=== PATIENT | male | born 1955 | race Caucasian/White ===

== ENCOUNTER 2024-07-28 10:00 | Day surgery (SDC) | payer MEDICARE, SELFPAY ==
--- OUTSIDE RECORDS SUMMARY | 2024-06-11 13:32 | XMS_ITS | Continuity of Care Document ---
Author Organization [address] [place] [address] [facility] [place] Address [address] [place] [address] Care Team Providers Care Party Planner Name Role Phone King Barroso OD Unavailable Unavailable Allergies, Adverse Reactions, Alerts Substance Reaction Status Criticality No Known Allergies Active No Inform ation Procedures Procedure Date Comprehensive Oral Eval-New Or Establish ed Patient Intraoral-Complete Series Of Radiographi c Images Advance Directives Directive Yes / No Effective Date File Name Resuscitation Attempt Resuscitation/CPR N/A N /A Other Directive No N/A N/A WARNING:The information contained in this section is historical and is provided for information only and does not constitute a legal document or any assurance that the information is still accurate. Please verify the information with the florentino of the legal document before using it for clinical purposes. Encounters Encounter Description Practice Location Reason(s) For Visit Diagnoses Date Provider Providers Copied on Encounter [address] [place] [address], [place], [place], [id number], Arlette Padgett No Information Chio Malik. [address] [facility], [address], [place], [place], [id number], [place]. tel:[phone] [place] [address] [place] [address], [id number], Arlette Padgett Encounter for dental examination and cleaning without abnormal findings Shar Turner. [address] [facility], [address], [place], [place], [id number], [place]. tel:[phone] Referring Provider: Azael Rivera. Family History Family Member Type Diagnosis Age At Onset No Information Payers Payer name Insurance type Covered constitution party ID Authoriza tion(s) DDS [employer] [place] [id number] Social History Type Description Quantity Date Captured Comments Sex Male Smoking Status No Information Chief Complaint And Reason For Visit No Information Reason For Referral Reason For Referral No Information Plan Of Treatment Date Type Action Status Patient Education Dental X-Ray: About Thi s Test completed Patient Education Learning About Dental Care and Your Health Problem completed History Of Present Illness Encounter Date Complaint History Of Prese nt Illness No Information Functional Status Date Functional Assessmen t No Information Instructions Date Instruction Additional Infor mation No Information Assessments Type Assessment Date No Information Patient Care Teams Name Effective Dates (start - stop) Status Members No Information
--- OUTSIDE RECORDS SUMMARY | 2024-06-11 13:32 | XMS_ITS | Clinical Summary ---
Author Organization [facility] Address [address] [place] [address] Phone Care Team Providers Care Construction Inspector Name Role Phone King Cr Primary Care Provider [phone] Allergies Active Allergy Reactions Criticality Noted Date Comments Egg 03/27/2024 Upset stomach Hydrochlorothiazide 07/31/2014 Light sensitivity Milk Containing Products (Dairy) Upset stomach Medications amLODIPine (NORVASC) 5 mg tablet Take 1 tablet (5 mg total) by mouth 1 (one) time each day. 4 Active aspirin 81 mg EC tablet Take 1 tablet (81 mg total) by mouth 1 (one) time each day. Active blood-glucose meter kit 1 (one) time each day. to check blood sugars 4 Active brinzolamide-b rimonidine (SIMBRINZA) 1-0.2 % ophthalmic suspension Administer into affected eye(s). Active carvediloL (COREG) 3.125 mg tablet Take 1 tablet (3.125 mg total) by mouth 2 (two) times a day with meals. 4 Active SITagliptin phosphate (Januvia) 100 mg tablet Take 1 tablet (100 mg total) by mouth 1 (one) time each day. 4 Active latanoprost (XALATAN) 0.005 % ophthalmic solution 1 drop 2 (two) times a day. Active lancets lancets 1 each by Not Applicable route 1 (one) time each day. OneTouch FinePoint Lancets 4 Active lisinopriL (PRINIVIL,ZEST RIL) 2.5 mg tablet Take 1 tablet (2.5 mg total) by mouth 1 (one) time each day. 4 Active TIMOLOL OPHT Administer 1 drop into both eyes 1 (one) time each day. Active OneTouch Ultra Test test strip USE TO TEST BLOOD SUGAR ONCE DAILY 100 strip 1 4 Active metFORMIN (GLUCOPHAGE) 500 mg tablet TAKE 2 TABLETS BY MOUTH TWICE A DAY WITH MEALS 360 tablet 1 5 Active rosuvastatin (CRESTOR) 20 mg tablet Take 1 tablet (20 mg total) by mouth 1 (one) time each day. 90 each 3 5 05/15/19 26 Active simvastatin (ZOCOR) 10 mg tablet Take 1 tablet (10 mg total) by mouth at bedtime. 90 tablet 1 4 05/15/19 25 Discontinu ed(Formula ry change) Hospital, Clinic, or Other Facility Administered Medication Ordered Dose Route Frequency Start Date End Date Status TC-99M tetrofosmin P radio-isotope injection 9.5 millicurie 9.5 millicurie IV Once in imaging 05/28/2024 05/28/2024 Ended TC-99M tetrofosmin P radio-isotope injection 32.1 millicurie 32.1 millicurie IV Once in imaging 05/28/2024 05/28/2024 Ende d Active Problems Problem Noted Date Diagnosed Date Palpitations 04/16/2024 Assessment & Plan (04/16/2024 1:21 PM EST): Secondary to known PVCs. The PVCs are generally well-managed with the current carvedilol regimen. The overall burden of PVCs is only 1%, which is significantly below the threshold of 25% where cardiac damage becomes a concern. His blood pressure readings today were within normal limits. He is advised to continue his current lifestyle modifications, including dietary changes and regular exercise. He is advised to increase the dosage of carvedilol to 6.25 mg twice daily or 6.25 mg in the morning and maintain the regular dose of 3.125 mg in the evening, depending on his comfort level. He is encouraged to communicate any changes via Clickabilityt. Orders: ECG 12 lead Encounter for screening for coronary artery disease in patient with risk for coronary artery disease less than 10% in next 10 years 04/16/2024 Assessment & Plan (04/16/2024 1:21 PM EST): A calcium score test will be ordered to further assess his cardiac risk. He is also advised to consider discontinuing aspirin therapy due to the potential risk of gastrointestinal bleeding, but the final decision will be left to him. Orders: CT Heart Calcium Scoring wo Contrast; Future Albuminuria 07/15/2015 Hyperkalemia 09/02/2014 CKD (chronic kidney disease) stage 3, GFR 30-59 ml/min 06/29/2014 Type 2 diabetes mellitus, co ntrolled, with renal complications 09/05/2012 Controlled type 2 diabetes with neuropathy 06/19 Overview (02/04/2024): Dr. Kruger DPM yani 11/14/2006. Type 2 diabetes mellitus with eye manifestations 06/19/2012 Overview (02/04/2024): Eye note 02/15/2008 Dr. Baugh Obesity 12/26/2011 Hyperlipidemia 01/01/2008 Assessment & Plan (04/16/2024 1:21 PM EST): His cholesterol levels are well-managed with a minimal dose of simvastatin. He is advised to continue his current medication regimen and dietary practices. The calcium score test will help refine his cardiac risk assessment and guide any necessary adjustments to his lipid management. Hypertension 01/25/2005 Assessment & Plan (04/16/2024 1:21 PM EST): His blood pressure is well-controlled, typically ranging between 99 and 115 mmHg in the morning. He is advised to monitor his blood pressure regularly, especially if he decides to increase the carvedilol dosage. If palpitations recur and he increases the carvedilol dose, he may need to reduce or discontinue amlodipine. He should contact the office if he has any questions or concerns about adjusting his medications. Follow-up The patient will follow up in 2 years, or earlier if necessary. Resolved Problems Problem Noted Date Diagnosed Date Resolved Date Coronary artery disease with angina pectoris 04/16/2024 Encounters Date Type Department Care Team Description 06/02/2024 8:00 AM EDT Office Visit [address] [phone] King Cr PA Controlled type 2 diabetes mellitus with other diabetic kidney complication, without long-term current use of insulin (CMS/HCC) (Primary Dx); Stage 3 chronic kidney disease, unspecified whether stage 3a or 3b CKD (CMS/HCC); Controlled type 2 diabetes with neuropathy (CMS/[facility]); Other hyperlipidemia; Hyperkalemia; Primary hypertension; Type 2 diabetes mellitus with other ophthalmic complication, without long-term current use of insulin ([facility]); Encounter for screening for malignant neoplasm of prostate 05/30/2024 Telephone [facility] Cardiology [facility] [address] [place] [address] Blue Cobb MD 05/28/2024 8:30 AM EDT Ancillary Procedure [facility] Cardiology [facility] [address] [place] [address] High coronary artery calcium score; Coronary artery disease involving campo coronary artery of campo heart, unspecified whether angina present 05/14/2024 Telephone [facility] Cardiology [facility] [address] [place] [address] Blue Cobb MD 04/21/2024 Telephone [facility] Cardiology [facility] [address] [place] [address] Blue Cobb MD Appointment (CT Calcium Scoring) 03/27/2024 9:20 AM EST Office Visit [facility] Cardiology [facility] [address] [place] [address] Blue Cobb MD Palpitations (Primary Dx); Pure hypercholesterolemia ; Encounter for screening for coronary artery disease in patient with risk for coronary artery disease less than 10% in next 10 years; Primary hypertension from Last 3 Months Immunizations Name Administration Dates Next Due Influenza Quadravalent, MDCK , 0.5ml, preservative free (Flucelvax) 6mo and older 12/07/2018 Influenza trivalent, 0.5mL ( Fluad) 65yo and older 12/23/2022,12/23/2021,11/24/2020,11/13 Influenza trivalent, 0.5mL, preservative free (Fluarix; FluLaval; Fluzone) ages 6mo and older (Afluria) 3 years and older 11/27/2017,01/10/2017,01/05/2016,12/08,01/01/2014,12/31/2012,12/26/2011 ,12/28/2010,01/14/2010,11/28/2008,12/11,01/25/2005 Influenza, Unspecified 11/16/2023,11/24/2020 Moderna (age 6mo & older) Bi valent, COVID-19, 0.5 mL or 0.25 mL dosage 12/16/2021 Pneumococcal conjugate 20 va lent (Prevnar 20, PCV 20) 2mo and older 07/19/2022 Pneumococcal polysaccharide 23 valent (Pneumovax 23) 2yo and older 12/30/2019,09/18/2006 RSV, bivalent, protein subun it RSVpreF, 0.5mL, Preservative Free (Arexvy) 60yo and older 12/23/2022 Td Tetanus diptheria (Tdvax) 7yo and older 07/19/2022,03/14/2004,03/14/2004 Tdap Tetanus diptheria acell ular pertussis (Boostrix; Adacel) 7yo and older 05/07/2012 Zoster Live 11/01/2016 Zoster recombinant (Shingrix ) 19yo and older 03/23/2020,01/07/2020 Surgical History Surgery Date Site/Laterality Comments COLONOSCOPY 05/31/2006 PROCEDURE: HISTORICAL COLONOSCOPY; COMMENT: Dr. Fisher, [facility]; diminutive 2 mm tubular adenomas ? 3 . COLONOSCOPY 10/17/2016 PROCEDURE: HISTORICAL COLONOSCOPY; COMMENT: No polyps Medical History Medical History Date Comments DM (diabetes mellitus), type 2, uncontrolled, with renal complications 09/05/2012 DX:DM (diabetes mellitus), type 2, uncontrolled, with renal complications Albuminuria 07/15/2015 DX:Albuminuria Personal history of colonic polyps 10/17/2016 DX:Personal history of colonic polyps; COMMENT: Diminutive tubular adenomas ? 3 , 2006. No polyps 2016. Family History Medical History Relation Name Comments Heart attack Brother 1 Other: CKD Father provoked DVT Other: carotid stenosis Mother atri al fibrillation Diabetes Sister Relation Name Status Comments Brother 1 mi age 40 mi 49 Brother 2 Alive Father Alive kidney problems Mother Alive dm,afib Sister Alive dm Social History Tobacco Use Types Packs/Day Years Used Date Smoking Tobacco: Former Cigarettes Smokeless Tobacco: Never Tobacco Cessation:Counseling Given: Not Answered Comments:Quit at the age of 17 smoked as a teenager Alcohol Use Standard Drinks/Week Comments Yes 0 (1 standard drink = 0.6 oz pur e alcohol) rarely Housing Instability Answer Date Recorde d Are you worried that in the next 2 months you may not have stable housing? No 05/26/2024 Food Access & Nutrition Answer Date Rec orded Do you have access to a vari ety of food including fruits and vegetables? Yes 05/26/2024 Access to Healthcare Answer Date Record ed Within the last 3 months, ho w many times did you visit the emergency department for your medical care? 0 05/26/2024 Health Literacy Answer Date Recorded How often do you need to hav e someone help you when you read instructions, pamphlets, or other written material from your doctor or pharmacy? Never 05/26/2024 Caregiver: How often do you need to have someone help you when you read instructions, pamphlets, or other written material from your doctor or pharmacy? Not on file 05/26/2024 Financial Risk Answer Date Recorded How hard is it for you to pa y for the very basics like food, housing, medical care, and air conditioning / heating? Not very hard 05/26/2024 Transportation Answer Date Recorded Has the lack of transportati on kept you from meetings, work, or from getting things needed for daily living? No Has the lack of transportati on kept you from medical appointments or from getting medications? No 05/26/2024 Social Isolation Answer Date Recorded How often do you feel lonely or isolated from ose around you? Never 05/26/2024 Food Risk Answer Date Recorded Within the past 12 months we worried whether our food would run out before we got money to buy more. Never true 05/26/2024 Within the past 12 months th e food we bought just didn't last and we didn't have money to get more. Never true 05/26/2024 Dependent Care Answer Date Recorded Do you need help finding or paying for care for your loved ones. For example, childcare center administrator or elderly care for an older adult? No 05/26/2024 Education Answer Date Recorded Do you think completing more education or training, like finishing a GED, going to college, or learning a trade, would be helpful for you? N/A 05/26/2024 Employment and Income Answer Date Recor ded During the last four weeks, have you been actively looking for work? No 05/26/2024 Living Situation Answer Date Recorded What is your living situation? 0 05/26/2024 Sex and Gender Information Value Date Recorded Sex Assigned at Male 02/04/2024 9:15 PM EST Legal Sex Male 6:49 AM EST Gender Identity Male 02/04/2024 9:15 PM EST Sexual Orientation Not on file Obstetrics History Last Filed Vital Signs Vital Sign Reading Time Taken Comments Blood Pressure 99/50 06/02/2024 8:04 AM EDT Pulse 58 06/02/2024 8:04 AM EDT Temperature 35.7 ??C (96.3 ??F) 06/02/2024 8:04 AM ED T Respiratory Rate 17 06/02/2024 8:04 AM EDT Oxygen Saturation 99% 03/27/2024 9:18 AM EST Inhaled Oxygen Concentration - - Weight 94.3 kg (207 lb 12.8 oz) 06/02/2024 8:04 AM EDT Height 177.8 cm (5' 10 ) 06/02/2024 8:04 AM EDT Body Mass Index 29.82 06/02/2024 8:04 AM EDT Plan of Treatment Upcoming Encounters Date Type Department Care Team (Late st Contact Info) Description 07/14/2024 10:00 AM EDT Consult Adult Medicine [address] [phone] King Cr PA [address] [place] [address] 11/12/2024 8:00 AM EDT Office Visit Adult Medicine [facility] [address] [place], [place] [phone] King Cr PA [address] [place], [place] Health Maintenance Due Date Last Done Comments Medicare Annual Wellness Visit 07/20/2023 07/19/2022 COVID-19 Vaccine ( season) 2024 11/16/2023, 12/08/2022, 12/16/2021, Additional history exists Diabetes: Annual Foot Exam 05/29/2024 05/30/2023 Diabetes: Annual Retina Eye Exam 11/27/2024 11/28/2023 Diabetes: Blood Sugar Control Test (HGBA1C) 11/29/2024 05/29/2024, 11/27/2023, 11/27/2023 Depression Screening 05/26/2025 05/26/2024, 08/23/19 24 Social Influencers of Health Screening 05/26/2025 05/26/2024 Diabetes: Annual Urine Albumin-Creatinine Ratio (uACR) 05/29/2025 05/29/2024, 11/27/2023 Diabetes: Annual GFR (Glomerular Filtration Rate) 05/29/2025 05/29/2024, 11/27/2023, 11/27/2023 Hypertension/CHF/CAD Annual BMP Blood Test 05/29/2025 05/29/2024, 11/27/2023, 11/27/2023 Falls Risk Assessment 06/02/2025 06/02/2024, 024 Colorectal Cancer Screening: Colonoscopy 10/17/2026 10/17/2016 Cholesterol Screening (Lipid Panel) 05/29/2029 05/29/2024, 11/27/2023, 11/27/2023 DTaP,Tdap,and Td Vaccines (5 - Td or Tdap) 07/19/2032 07/19/2022, 05/07/2012, 03/14/2004, Additional history exists Hepatitis C Screening Completed 01/06/2013 Zoster Vaccines Completed 03/23/2020, 12/11, 11/01/2016 Pneumococcal Vaccine: 50+ Years Completed 07/19/2022, 12/30/2019, 09/18/2006 RSV Immunization Adult Patients Completed 12/23/2022 Abdominal Aortic Aneurysm (AAA) Screen Completed 07/30/2023 Influenza Vaccine Completed 11/16/2023, , 12/23/2021, Additional history exists HIB Vaccines Aged Out No longer eligi ble based on patient's age to complete this topic HPV Vaccines Aged Out No longer eligi ble based on patient's age to complete this topic Hepatitis A Vaccines Aged Out No long er eligible based on patient's age to complete this topic Hepatitis B Vaccines Aged Out No long er eligible based on patient's age to complete this topic IPV Vaccines Aged Out No longer eligi ble based on patient's age to complete this topic MMR Vaccines Aged Out No longer eligi ble based on patient's age to complete this topic Meningococcal ACWY Vaccine Aged Out N o longer eligible based on patient's age to complete this topic Meningococcal B Vacine Aged Out No lo nger eligible based on patient's age to complete this topic RSV Immunization Patients Under 20 months Aged Out No longer eligible based on patient's age to complete this topic Varicella Vaccines Aged Out No longer eligible based on patient's age to complete this topic Procedures Procedure Name Priority Date/Time Associated Diagnosis Comments LIPID PANEL WITH REFLEX TO DIRECT LDL Routine 05/29/2024 8:01 AM EDT Type 2 diabetes mellitus with other ophthalmic complication, without long-term current use of insulin (CMS/HCC) Stage 3 chronic kidney disease, unspecified whether stage 3a or 3b CKD (CMS/HCC) MICROALBUMIN CREATININE URINE RATIO Routine 05/29/2024 8:01 AM EDT Type 2 diabetes mellitus with other ophthalmic complication, without long-term current use of insulin (CMS/HCC) Stage 3 chronic kidney disease, unspecified whether stage 3a or 3b CKD (CMS/HCC) COMPREHENSIVE METABOLIC PANEL Routine 05/29/2024 8:01 AM EDT Type 2 diabetes mellitus with other ophthalmic complication, without long-term current use of insulin ([facility]) Stage 3 chronic kidney disease, unspecified whether stage 3a or 3b CKD ([facility]/HCC) HEMOGLOBIN A1C Routine 05/29/2024 8:01 AM EDT Type 2 diabetes mellitus with other ophthalmic complication, without long-term current use of insulin ([facility]) Stage 3 chronic kidney disease, unspecified whether stage 3a or 3b CKD ([facility]/HCC) NM EXERCISE STRESS TEST W/ MYOCARDIAL PERFUSION Routine 05/28/2024 1:15 PM EDT High coronary artery calcium score Coronary artery disease involving campo coronary artery of campo heart, unspecified whether angina present EXTERNAL CT REPORT 05/12/2024 ECG 12-LEAD Routine 03/27/2024 9:25 AM EST Palpitations DIABETES EYE EXAM Routine 11/28/2023 DEPRESSION SCREENING Routine 08/23/2023 FALLS RISK ASSESSMENT Routine 07/23/2023 DIABETES FOOT EXAM Routine 05/30/2023 COLONOSCOPY Routine 10/17/2016 HEPATITIS C SCREENING Routine 01/06/2013 from Last 3 Months or Most Recently Relevant to Health Maintenance Results * Lipid panel with reflex to direct LDL (05/29/2024 8:01 AM EDT) [facility] Signature Cholesterol 90 0 - 200 mg/dL LAB CHEMISTRY METHOD 05/29/2024 12:22 PM EDT [facility] Triglycerides 47 0 - 150 mg/dL LAB CHEMISTRY METHOD 05/29/2024 12:22 PM T [facility] Comment:Results verified by repeat testing HDL 43 >=40 mg/dL LAB CHEMISTRY METHOD 05/29/2024 12:22 PM T [facility] LDL Calculated 38 0 - 100 mg/dL LAB CHEMISTRY METHOD 05/29/2024 12:22 PM EDT [facility] VLDL Cholesterol Shine 9.4 mg/dL LAB CHEMISTRY METHOD 05/29/2024 12:22 PM EDT [facility] Non HDL Chol. (LDL+VLDL) 47 <145 mg/dL LAB CHEMISTRY METHOD 05/29/2024 12:22 PM EDT [facility] Chol/HDL Ratio 2.1 0.0 - 4.4 LAB CHEMISTRY METHOD 05/29/2024 12:22 PM EDT [facility] Blood Venous blood specimen / Unknown Venipuncture / Unknown 05/29/2024 8:01 AM EDT 05/29/2024 8:01 AM EDT [facility] LAB BLOOD ORDERABLES Deb l Result [facility] [address] [place] [address], [place] [phone] * (ABNORMAL) Microalbumin creatinine urine ratio (05/29/2024 8:01 AM EDT) Creatinine, Urine 209.0 mg/dL LAB CHEMISTRY METHOD 05/29/2024 11:37 AM EDT [facility] Microalb, Ur 210.0(H) 0.0 - 29.0 mg/L LAB CHEMISTRY METHOD 05/29/2024 11:37 AM EDT [facility] Microalb/Crea t Ratio 100(H) <30 mg/g creat LAB CHEMISTRY METHOD 05/29/2024 11:37 AM EDT [facility] Urine Urine specimen obtained by clean catch procedure / Unknown Non-blood Collection / Unknown 05/29/2024 8:01 AM EDT 05/29/2024 8:01 AM EDT [facility] LAB URINE ORDERABLES Deb l Result [facility] [address] [place] [address], * Hemoglobin A1c (05/29/2024 8:01 AM EDT) [facility] Hemoglobin A1C 6.2 <6.5 % LAB CHEMISTRY METHOD 05/29/2024 12:03 PM EDT [facility] Mean Bld Glu Estim. 131 mg/dL LAB CHEMISTRY METHOD 05/29/2024 12:03 PM EDT [facility] Blood Venous blood specimen / Unknown Venipuncture / Unknown 05/29/2024 8:01 AM EDT 05/29/2024 8:01 AM EDT [facility] LAB BLOOD ORDERABLES Deb l Result Performing Organization Address City/[facility]/ZIP Co de Phone Number [facility] [address] [place] [address], [place] [phone] * (ABNORMAL) Comprehensive metabolic panel (05/29/2024 8:01 AM EDT) [facility] Sodium 140 133 - 145 mmol/L LAB CHEMISTRY METHOD 05/29/2024 11:56 AM EDT [facility] Potassium 5.4 3.5 - 5.5 mmol/L LAB CHEMISTRY METHOD 05/29/2024 11:56 AM EDT [facility] Chloride 112(H) 96 - 110 mmol/L LAB CHEMISTRY METHOD 05/29/2024 11:56 AM EDT [facility] CO2 22 21 - 32 mmol/L LAB CHEMISTRY METHOD 05/29/2024 11:56 AM EDT [facility] Anion Gap 6 3 - 11 LAB CHEMISTRY METHOD 05/29/2024 11:56 AM EDT [facility] Glucose 116(H) 70 - 100 mg/dL LAB CHEMISTRY METHOD 05/29/2024 11:56 AM [facility] BUN 33(H) 5 - 25 mg/dL LAB CHEMISTRY METHOD 05/29/2024 11:56 AM [facility] Creatinine 1.31(H) 0.70 - 1.30 mg/dL LAB CHEMISTRY METHOD 05/29/2024 11:56 AM [facility] eGFR 59(L) >=60 mL/min/1. 73m2 LAB CHEMISTRY METHOD 05/29/2024 11:56 AM [facility] Comment:Calculation based on the??Chronic Kidney Disease Epidemiology Collaboration (CKD-EPI) equation refit??without adjustment for race. BUN/Creatinine Ratio 25.2 LAB CHEMISTRY METHOD 05/29/2024 11:56 AM [facility] Calcium 8.8 8.5 - 10.5 mg/dL LAB CHEMISTRY METHOD 05/29/2024 11:56 AM [facility] AST (SGOT) 19 10 - 42 unit/L LAB CHEMISTRY METHOD 05/29/2024 11:56 AM [facility] ALT (SGPT) 22 10 - 60 unit/L LAB CHEMISTRY METHOD 05/29/2024 11:56 AM [facility] Alkaline Phosphatase 66 42 - 121 unit/L LAB CHEMISTRY METHOD 05/29/2024 11:56 AM [facility] Total Protein 6.7 6.0 - 8.0 g/dL LAB CHEMISTRY METHOD 05/29/2024 11:56 AM [facility] Albumin 3.8 3.2 - 5.0 g/dL LAB CHEMISTRY METHOD 05/29/2024 11:56 AM [facility] Total Bilirubin 0.4 0.0 - 1.4 mg/dL LAB CHEMISTRY METHOD 05/29/2024 11:56 AM [facility] Blood Venous blood specimen / Unknown Venipuncture / Unknown 05/29/2024 8:01 AM EDT 05/29/2024 8:01 AM EDT us [facility] LAB BLOOD ORDERABLES Deb anthony Result [facility] [address] [place] [address], [place] [phone] * NM EXERCISE STRESS TEST W/ MYOCARDIAL PERFUSION (05/28/2024 1:15 PM EDT) Exercise/inject ion duration (min) 4 CV PACS STRESS Exercise/inject ion duration (sec) 21 CV PACS STRESS Peak SBP 140 mmHg CV PACS STRESS Peak DBP 70 mmHg CV PACS STRESS Peak HR 133 bpm CV PACS STRESS Baseline HR 58 bpm CV PACS STRESS Baseline SBP 105 mmHg CV PACS STRESS Baseline DBP 58 mmHg CV PACS STRESS Estimated workload 7.0 METS CV PACS STRESS Percent HR 88 % CV PACS STRESS Rate Pressure Product 18,620.0 mmHg*bpm CV PACS STRESS Target HR 128 b[address] PACS STRESS ST Depression (mm) 0 mm CV PACS STRESS TID 1.06 CV PACS STRESS Nuc Stress EF 56 % CV PAC S STRESS Nuc Rest EF 64 % CV PACS STRESS BSA 2.16 m2 CV PACS STRESS Anatomical Region Laterality Modality Nuclear Medicine 05/28/2024 9:3 9 AM EDT 05/28/2024 10:11 AM EDT Impressions 05/28/2024 3:08 PM EDT Abnormal Exercise stress test with nuclear imaging. ?? No chest pain or EKG changes consistent with ischemia. Nuclear imaging revealed a small, mild, fixed perfusion defect of the apex and apical inferior wall consistent with infarct after attenuation correction was applied. There is a normal TID ratio. Gated SPECT imaging was performed and revealed an LVEF of 64 %. Small apical perfusion defect observed; with normal EF/TID ratio/no apparent regional wall motion possibility of false positive perfusion defect is high; consider alternative modality for assessment of CAD Narrative 05/28/2024 3:08 PM EDT Nuclear imaging of the left ventricle shows a normal cavity size. Myocardial perfusion imaging of the left ventricle reveals a small, mild, fixed perfusion defect of the apical inferior and apical mistry after CT attenuation correction was applied to the study. Gated SPECT imaging was performed which demonstrated normal left ventricular systolic function. The calculated LVEF is 64 %. TID ratio is normal. Stress Findings A Andres protocol stress test was performed. Overall, the patient's exercise capacity was below average. Total stress time was 4 min and 21 sec. The test was stopped because the patient experienced fatigue and shortness of breath. The patient's hemodynamic response was adequate for diagnosis. Blood pressure demonstrated a normal response. Heart rate demonstrated a normal response. The patient reported shortness of breath during the stress test but no chest pain. Dyspnea resolved quickly in recovery. ECG 68 yo male with elevated coronary calcium score. Assess for symptoms and functional capacity. Test performed on carvedilol and amlodipine. The ECG shows sinus bradycardia. Arrhythmias during stress: rare premature ventricular contractions (PVCs) . There is no ST segment changes during stress. Arrhythmias during recovery: premature ventricular contractions (PVCs). The result of the stress ECG was negative for ischemia. Nuclear Study Quality Study technique: MPI, SPECT, multi, rest and stress, 1 day and gated. Overall image quality is good. CT attenuation correction was utilized. No radiopharmaceutical dose was extravasated. Stress Function Comments Stress ejection fraction is 56%. Rest Function Comments Resting ejection fraction was 64%. Result [facility] Blue Cobb MD CV STRESS PROCEDURES Final Resu lt * External CT Report (05/12/2024) Anatomical Region Laterality Modality Computed [facility] Final Result * ECG 12 lead (03/27/2024 9:25 AM EST) Ventricular Rate ECG 58 BPM GEMUSE Atrial Rate 58 BPM GEMUSE P-R Interval 150 ms GEMUSE QRS Duration 82 ms GEMUSE Q-T Interval 406 ms GEMUSE QTc 398 ms GEMUSE P Wave [place] 80 degrees GEMUSE R [place] 55 degrees GEMUSE T [place] 68 degrees GEMUSE ECG Interpretation Sinus bradycardia Otherwise normal ECG When compared with ECG of 23-FEB-2008 17:26, Vent. rate has decreased BY ??45 BPM QT has shortened Confirmed by BLUE COBB ([id number]) on 03/27/2024 5:50:01 PM GEMUSE 03/27/2024 9:25 AM EST 03/27/2024 5:50 PM EST Result [facility] Blue Cobb MD ECG ORDERABLES Final Result GEMUSE * Diabetes Eye Exam (11/28/2023) [facility] Diabetes: Annual Retina Eye Exam abstracted Result [facility] Provider HEALTH MAINTENANCE Final Result * Depression Screening (08/23/2023) [facility] Depression Screening abstracted Result [facility] Provider HEALTH MAINTENANCE Final Result * Falls Risk Assessment (07/23/2023) [facility] Falls Risk Assessment abstracted Result [facility] Provider HEALTH MAINTENANCE Final Result * Diabetes Foot Exam (05/30/2023) [facility] Diabetes: Annual Foot Exam abstracted Result [facility] Provider HEALTH MAINTENANCE Final Result * Colonoscopy (10/17/2016) [facility] Colonoscopy no interpretation , abstracted Anatomical Region Laterality Modality Other Result [facility] Provider HEALTH MAINTENANCE Final Result * Hepatitis C Screening (01/06/2013) [facility] Hepatitis C Screening abstracted Result [facility] Provider HEALTH MAINTENANCE Final Result from Last 3 Months or Most Recently Relevant to Health Maintenance Insurance MEDICARE Care Teams Construction Inspector Relationship Specialty Start Date End Date [address] [place] [address] PCP - General Internal Medicine 03/27/24
[2024-07-24 11:10] VITALS: BMI 29.0
--- NOTE | 2024-07-24 15:24 | HO.ANESPROP2 ---
Documented by User: Anita Banks NP 07/24/24 15:24 HPI - Anesthesia Eval Consult details Narrative: 68yo M for Left Cataract Extraction IOL Insertion, Trabeculectomy No previous Cataract, Trabeculectomy on record Anesthesia Pre-Procedure Meds Is the patient on any of the following meds?: GLP1/DPP4 PMFSH Past Medical History Medical History Cataracts, bilateral HTN (hypertension) HLD (hyperlipidemia) Type 2 diabetes mellitus with renal complication CKD (chronic kidney disease) stage 3, GFR 30-59 ml/min CAD (coronary artery disease) Palpitations Social History Social History Household Members: Spouse Housing: House Patient Tobacco Use Status: Former Tobacco user Tobacco use type: Cigarette Advance Directives: No Advance Directives Information Provided: Yes Meds Allergies Allergy/AdvReac Type Severity Reaction Status Date / Time egg Allergy Unknown Verified 07/24/24 10:42 hydrochlorothiazide Allergy Unknown Verified 07/24/24 10:42 lactose Allergy Unknown Verified 07/24/24 10:42 Home Medications ?Medication ?Instructions ?Recorded ?Confirmed ?Last Taken ?Type amlodipine 2.5 mg tablet 2.5 mg PO DAILY 07/24/24 07/24/24 Unknown History aspirin 81 mg tablet,delayed 81 mg PO DAILY 07/24/24 07/24/24 Unknown History release brinzolamide 1 %-brimonidine 0.2 % 1 drp ophthalmic (eye) TID 07/24/24 07/24/24 Unknown History eye drops,suspension (Simbrinza) carvedilol 3.125 mg tablet 3.125 mg PO BID 07/24/24 07/24/24 Unknown History latanoprost 0.005 % eye drops 1 drp ophthalmic (eye) BID 07/24/24 07/24/24 Unknown History (Xalatan) lisinopril 2.5 mg tablet 2.5 mg PO DAILY 07/24/24 07/24/24 Unknown History metformin 500 mg tablet 500 mg PO BID 07/24/24 07/24/24 Unknown History rosuvastatin 20 mg tablet 20 mg PO DAILY 07/24/24 07/24/24 Unknown History sitagliptin phosphate 100 mg 100 mg PO DAILY 07/24/24 07/24/24 Unknown History tablet (Januvia) timolol 07/24/24 Unknown History triamcinolone acetonide 0.1 % 1 appl topical BID 07/24/24 07/24/24 Unknown History topical cream Exam Height,Weight and Vital Signs: Height 5 ft 10 in Weight 91.626 kg Assessment and Plan Assessment Anesthesia Assessment: Chart Reviewed Documented by User: Milana Draper MD 07/28/24 11:46 [facility] Past Medical History Medical History Cataracts, bilateral HTN (hypertension) HLD (hyperlipidemia) Type 2 diabetes mellitus with renal complication CKD (chronic kidney disease) stage 3, GFR 30-59 ml/min CAD (coronary artery disease) Palpitations Family History Family history of problems with anesthesia: No Surgical History History of Problems with Anesthesia: No Social History Social History Household Members: Spouse Housing: House Patient Tobacco Use Status: Former Tobacco user Tobacco use type: Cigarette Advance Directives: No Advance Directives Information Provided: Yes Meds Allergies Allergy/AdvReac Type Severity Reaction Status Date / Time egg Allergy Unknown Verified 07/24/24 10:42 hydrochlorothiazide Allergy Unknown Verified 07/24/24 10:42 lactose Allergy Unknown Verified 07/24/24 10:42 Home Medications ?Medication ?Instructions ?Recorded ?Confirmed ?Last Taken ?Type amlodipine 2.5 mg tablet 2.5 mg PO DAILY 07/24/24 07/24/24 Unknown History aspirin 81 mg tablet,delayed 81 mg PO DAILY 07/24/24 07/24/24 Unknown History release brinzolamide 1 %-brimonidine 0.2 % 1 drp ophthalmic (eye) TID 07/24/24 07/24/24 Unknown History eye drops,suspension (Simbrinza) carvedilol 3.125 mg tablet 3.125 mg PO BID 07/24/24 07/24/24 Unknown History latanoprost 0.005 % eye drops 1 drp ophthalmic (eye) BID 07/24/24 07/24/24 Unknown History (Xalatan) lisinopril 2.5 mg tablet 2.5 mg PO DAILY 07/24/24 07/24/24 Unknown History metformin 500 mg tablet 500 mg PO BID 07/24/24 07/24/24 Unknown History rosuvastatin 20 mg tablet 20 mg PO DAILY 07/24/24 07/24/24 Unknown History sitagliptin phosphate 100 mg 100 mg PO DAILY 07/24/24 07/24/24 Unknown History tablet (Januvia) timolol 07/24/24 Unknown History triamcinolone acetonide 0.1 % 1 appl topical BID 07/24/24 07/24/24 Unknown History topical cream Exam Airway Mallampati Class: II TM Dist: >3cm Neck ROM: Full Heart: rrr Lungs: cta Assessment and Plan Assessment Anesthesia Assessment: Anesthesia Plan Discussed Final Anesthetic Review Family History of Problems with Anesthesia: No History of Problems with Anesthesia: No NPO: Yes ASA Class: III Final Preanesthetic Review: No Changes in Pt Med Stat, Meds/Allgs Chart Reviewed, Consent Obtained/Reviewed and Anes Risks/Benef Reviewed Patient Risk: Intermediate Procedure Risk: Low Anesthetic Plan Anesthetic Plan: MAC: Disposition: Standard PACU
[2024-07-28] MEDS: Tetracaine HCl/PF 0.5% Oph Sol 4 ML DROPS 1 DROP EYE-LEFT (12:00)
[2024-07-28] MEDS: Cyclopentolate 1 % Ophth Sol 2 ML DRPBTL 1 DROP EYE-LEFT ×3 (12:01→12:09)
[2024-07-28] MEDS: Tropicamide 1 % Ophth Sol 3 ML BTL 1 DROP EYE-LEFT ×3 (12:02→12:09)
[2024-07-28] MEDS: Lactated Ringers 500 ML 50 ML IV (12:02)
[2024-07-28] MEDS: Ketorolac Tromethamine 0.5% Op 5 ML DROPS 1 DROP EYE-LEFT ×3 (12:03→12:10)
[2024-07-28 12:04] LABS: Glucose, Whole Blood 104 mg/dL (60-115)
[2024-07-28] MEDS: Phenylephrine HCL 2.5% Oph SoL 2 ML BOTTLE 1 DROP EYE-LEFT ×3 (12:04→12:10)
[2024-07-28 12:10] VITALS: BP 115/51; PULSE 65; RESP 6; TEMP 36.2; O2SAT 100
--- NOTE | 2024-07-28 13:05 | MHC.SHP ---
Pre-Procedural Eval Section A - 24 Hr Update-Section A only Date of Service: 07/28/24 The patient is an INPATIENT: No Changes since office visit: No Cold of Flu in the past 2 weeks, No New Medical Problems, No Changes in Medication and No Patient answered all questions The patient has been examined within 24 hours of the surgical procedure. The History & Physical has been completed within 30 days and I have reviewed it.: Yes Section B - Complete if H&P > 30 days Chief Complaint: Age-related nuclear cataract, left eye,glaucoma Allergies: Allergies Allergy/AdvReac Type Severity Reaction Status Date / Time egg Allergy Unknown Verified 07/24/24 10:42 hydrochlorothiazide Allergy Unknown Verified 07/24/24 10:42 lactose Allergy Unknown Verified 07/24/24 10:42 Plan Diagnosis/Plan: Unchanged I have reviewed the history and physical and performed a pertinent physical examination on my patient. No changes have occurred unless specified. Time Spent With Patient Time: Total time managing care of this patient today ____ minutes.
--- NOTE | 2024-07-28 13:06 | HO.PNOPHT ---
Ophthalmology Procedure Procedure Date of Service: 07/28/24 Ophthalmology Viscoelastic: Healon Duet Dual Pack Pro Ophthalmology Lenses: IOL Acrysof MP - MA60AC (19.5) Procedure Notes: PREOPERATIVE DIAGNOSIS: Decreased visual acuity left eye secondary to cataract and glaucoma POSTOPERATIVE DIAGNOSIS: Same PROCEDURE: Left cataract extraction with intraocular lens insertion and trabeculectomy, left eye SURGEON: Vu Tony M.D. ANESTHESIA: Topical/MAC ESTIMATED BLOOD LOSS: None COMPLICATIONS: None After obtaining informed consent, the patient was brought to the operating room suite and placed in the supine position. After adequate sedation per anesthesia, topical drops of Tetracaine were given to the left eye. The eye was then prepped and draped in the usual sterile fashion. The operating room microscope was then positioned over the left eye and a lid speculum placed. 2% Lidocaine was instilled subconjunctivally. After awaiting 30 seconds, a paracentesis was created superiorly. Hemostasis was then achieved using wet field cautery. Mitomycin .4mg/ml was then placed in the conjunctival pocket and held in place for two minutes. The subconjunctival pocket was then irrigated copiously with 20 mls of BSS. Paracentesis was then created. Viscoelastic was then instilled into the anterior chamber. A crescent blade was then utilized to create a partial thickness sclera wound followed by advancement to clear cornea with the crescent blade. A keratome was then utilized to enter the anterior chamber. Capsulotomy forceps were then utilized to create a continuous circular tear capsulotomy. Hydrodissection and hydrodelineation were carried out until adequate mobilization of the nucleus occurred. Phacoemulsification was utilized to remove the dense central nucleus followed by removal of remnant cortical material utilizing the automated aspiration irrigation unit. Viscoelastic was then instilled into the posterior capsular bag followed by placement of a posterior chamber intraocular lens. Attention was then directed to create a trabeculectomy. A Dionne punch was then utilized to create the trabeculectomy. The residual Viscoelastic was then removed utilizing the automated IA machine. The egress of aqueous was evaluated and found to be appropriate. The conjunctiva was then closed with a 9-0 vicryl suture. BSS was then instilled into the anterior chamber creating a superior bleb, without obvious leakage. Intracameral injection of Vigamox 0.3%, 0.1 ml and subtenon injection of Kenalog-40 0.2 ml was given followed by an atropine drop. The patient tolerated the procedure well and will be followed up in the a.m.
[2024-07-28 13:50] VITALS: BP 133/59; PULSE 63; RESP 16; TEMP 36.7; O2SAT 100
== END 2024-07-28 13:59 | disposition home or self-care (01) ==
PROVIDERS: PCP Physician Assistant Medical; Visit Provider Ophthalmology
PROC: (CPT 66985; principal; 2024-07-28 13:30)
PROC: (CPT 66170; 2024-07-28 13:30)
DX: H25.12 Age-related nuclear cataract, left eye (principal); H40.1122 Primary open-angle glaucoma, left eye, moderate stage; H18.413 Arcus senilis, bilateral; E11.22 Type 2 diabetes mellitus with diabetic chronic kidney disease; I12.9 Hypertensive chronic kidney disease with stage 1 through stage 4 chronic kidney disease, or unspecified chronic kidney disease; N18.30 Chronic kidney disease, stage 3 unspecified; E11.40 Type 2 diabetes mellitus with diabetic neuropathy, unspecified; Z79.84 Long term (current) use of oral hypoglycemic drugs; Z79.899 Other long term (current) drug therapy; Z79.82 Long term (current) use of aspirin; Z88.8 Allergy status to other drugs, medicaments and biological substances; Z91.012 Allergy to eggs; Z91.011 Allergy to milk products; Z87.891 Personal history of nicotine dependence
CPT/HCPCS: 66984; 66170; 82947; J2003; J2250; J3010; J3301; J7315; V2630

== ENCOUNTER 2024-12-01 06:17 | Day surgery (SDC) | payer MEDICARE, SELFPAY ==
[2024-07-24 11:12] VITALS: BMI 29.0
--- OUTSIDE RECORDS SUMMARY | 2024-07-29 14:00 | XMS_ITS | Clinical Summary ---
Author Organization [facility] Address [address] [place] [address] Phone Care Team Providers Care Accountant Clerk Name Role Phone King Cr Primary Care Provider [phone] Allergies Active Allergy Reactions Criticality Noted Date Comments Egg 03/27/2024 Upset stomach Hydrochlorothiazide 07/31/2014 Light sensitivity Milk Containing Products (Dairy) Upset stomach Medications aspirin 81 mg EC tablet Take 1 tablet (81 mg total) by mouth 1 (one) time each day. Active blood-glucose meter kit 1 (one) time each day. to check blood sugars 07/23/19 24 Active brinzolamide-b rimonidine (SIMBRINZA) 1-0.2 % ophthalmic suspension Administer into affected eye(s). Active latanoprost (XALATAN) 0.005 % ophthalmic solution 1 drop 2 (two) times a day. Active lancets lancets 1 each by Not Applicable route 1 (one) time each day. OneTouch FinePoint Lancets 05/30/19 24 Active TIMOLOL OPHT Administer 1 drop into both eyes 1 (one) time each day. Active OneTouch Ultra Test test strip USE TO TEST BLOOD SUGAR ONCE DAILY 100 strip 1 02/17/20 24 Active metFORMIN (GLUCOPHAGE) 500 mg tablet TAKE 2 TABLETS BY MOUTH TWICE A DAY WITH MEALS 360 tablet 1 05/09/19 25 Active rosuvastatin (CRESTOR) 20 mg tablet Take 1 tablet (20 mg total) by mouth 1 (one) time each day. 90 each 3 05/15/19 25 026 Active triamcinolone (KENALOG) 0.1 % cream Apply to affected area 2 times daily as needed for 2 weeks 28.4 g 1 06/28/19 25 025 Active Januvia 100 mg tabletIndicati ons:Type 2 diabetes mellitus with diabetic nephropathy ([facility] V24, CMS/[facility] V28),Chronic kidney disease, stage 3 unspecified (CMS/HCC V24, CMS/HCC V28) TAKE 1 TABLET BY MOUTH EVERY DAY 90 tablet 1 07/03/19 25 Active carvediloL (COREG) 3.125 mg tablet TAKE 1 TABLET BY MOUTH TWICE A DAY WITH FOOD 180 tablet 1 07/09/19 25 Active lisinopriL (PRINIVIL,ZEST RIL) 2.5 mg tablet TAKE 1 TABLET BY MOUTH EVERY DAY 90 tablet 1 07/09/19 25 Active amLODIPine (NORVASC) 2.5 mg tablet Take 1 tablet (2.5 mg total) by mouth 1 (one) time each day. 07/03/19 25 Active amLODIPine (NORVASC) 5 mg tablet Take 1 tablet (5 mg total) by mouth 1 (one) time each day. 12/10/19 24 025 Discontinued(Do se adjustment) carvediloL (COREG) 3.125 mg tablet Take 1 tablet (3.125 mg total) by mouth 2 (two) times a day with meals. 01/08/20 24 025 Discontinued SITagliptin phosphate (Januvia) 100 mg tablet Take 1 tablet (100 mg total) by mouth 1 (one) time each day. 01/08/20 24 025 Discontinued lisinopriL (PRINIVIL,ZEST RIL) 2.5 mg tablet Take 1 tablet (2.5 mg total) by mouth 1 (one) time each day. 01/08/20 24 025 Discontinued Active Problems Problem Noted Date Diagnosed Date [...] is encouraged to communicate any changes via [employer]. 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 Kruger DPM yani 11/14/2006. Type 2 diabetes mellitus wit h eye manifestations ([facility] V24, [facility] V28) 06/19/2012 Overview (02/04/2024): Eye note 02/15/2008 Dr. [...] Date Coronary artery disease with angina pectoris ([facility] V24) 04/16/2024 04/16/2024 Encounters Date Type Department Care Team Description 07/14/2024 10:00 AM EDT Consult Adult Medicine [address] [phone] King Cr PA Preoperative cardiovascular examination (Primary Dx); Age-related cataract of both eyes, unspecified age-related cataract type; Controlled type 2 diabetes with neuropathy ([facility] V24, [facility] V28); Controlled type 2 diabetes mellitus with other diabetic kidney complication, without long-term current use of insulin ([facility] V24, [facility] V28); Stage 3 chronic kidney disease, unspecified whether stage 3a or 3b CKD ([facility] V24, [facility] V28) 06/27/2024 10:00 AM EDT Office Visit Adult Medicine [address] [phone] Gaby Gottlieb PA Eczema, unspecified type (Primary Dx) 06/26/2024 Telephone Adult Medicine [address] [phone] King Cr PA rash on legs 06/02/2024 8:00 AM EDT Office Visit Adult Medicine [address] [phone] King Cr PA Controlled type 2 diabetes mellitus with other diabetic kidney complication, without long-term current use of insulin ([facility] V24, [facility] V28) (Primary Dx); Stage 3 chronic kidney disease, unspecified whether stage 3a or 3b CKD (CMS/HCC V24, [facility]/HCC V28); Controlled type 2 diabetes with neuropathy ([facility] V24, [facility] V28); Other hyperlipidemia; Hyperkalemia; Primary hypertension; Type 2 diabetes mellitus with other ophthalmic complication, without long-term current use of insulin ([facility] V24, [facility] V28); Encounter for screening for malignant neoplasm of prostate 05/30/2024 Telephone [facility] Card[facility] [address] [place] [address] Katarina Hubbard MD 05/28/2024 8:30 AM EDT Ancillary Procedure [facility] Card[facility] [address] [place] [address] High coronary artery calcium score; Coronary artery disease involving point hope ira coronary artery of point hope ira heart, unspecified whether angina present 05/14/2024 Telephone [facility] Card[facility] [address] [place] [address] Katarina Hubbard MD from Last 3 Months Immunizations Name Administration [...] 05/31/2006 PROCEDURE: HISTORICAL COLONOSCOPY; COMMENT: Dr. Fisher, [facility]; diminutive 2 mm tubular adenomas ? [...] Brother 1 Other: CKD Father provoked DVT Valvular heart disease Father 89 Other: carotid stenosis Mother atri al fibrillation Diabetes Sister Relation Name Status Comments Brother 1 mi age 40 mi 49 Brother 2 Alive Father kidney problems Mother Alive dm,afib Sister Alive [...] do you feel lonely or isolated from th ose around you? Never 05/26/2024 Food Risk [...] care for your loved ones. For example, child guidance counselor or elderly care for an older adult? [...] Sign Reading Time Taken Comments Blood Pressure 110/64 07/14/2024 10:07 AM EDT Pulse 66 07/14/2024 10:07 AM EDT Temperature 35.7 ??C (96.3 ??F) 07/14/2024 10:07 AM E DT Respiratory Rate 15 07/14/2024 10:07 AM EDT Oxygen Saturation 97% 06/27/2024 9:52 AM EDT Inhaled Oxygen Concentration - - Weight 91.8 kg (202 lb 6.4 oz) 07/14/2024 10:07 AM EDT Height 177.8 cm (5' 10 ) 07/14/2024 10:07 AM EDT Body Mass Index 29.04 07/14/2024 10:07 AM EDT Plan of Treatment Upcoming Encounters Date Type Department Care Team (Late st Contact Info) Description 11/12/2024 11:00 AM EDT Office Visit Adult Medicine [facility] [address] [place], [place] [phone] King Cr PA [address] [place] [address] Health Maintenance Due Date Last Done Comments Medicare Annual Wellness Visit 07/20/2023 07/19/2022 COVID-19 Vaccine ( season) 2024 11/16/2023, 12/08/2022, 12/16/2021, Additional history exists Diabetes: Annual Foot Exam 05/29/2024 05/30/2023 Diabetes: Annual Retina Eye Exam 11/27/2024 11/28/2023 Diabetes: Blood Sugar Control Test (HGBA1C) 11/29/2024 05/29/2024, 11/27/2023, 11/27/2023 Social Influencers of Health Screening 05/26/2025 05/26/2024 Diabetes: Annual Urine Albumin-Creatinine Ratio (uACR) 05/29/2025 05/29/2024, 11/27/2023 Diabetes: Annual GFR (Glomerular Filtration Rate) 05/29/2025 05/29/2024, 11/27/2023, 11/27/2023 Hypertension/CHF/CAD Annual BMP Blood Test 05/29/2025 05/29/2024, 11/27/2023, 11/27/2023 Depression Screening 06/26/2025 06/26/2024, 08/23/19 24 Falls Risk Assessment 06/27/2025 06/27/2024, 024 Colorectal Cancer Screening: Colonoscopy 10/17/2026 10/17/2016 [...] age to complete this topic Meningococcal B Vaccine Aged Out No l onger eligible based on patient's age to complete [...] complication, without long-term current use of insulin ([facility] V24, CMS/[facility] V28) Stage 3 chronic kidney disease, unspecified whether stage 3a or 3b CKD (CMS/HCC V24, CMS/HCC V28) MICROALBUMIN CREATININE URINE RATIO Routine 05/29/2024 8:01 AM EDT Type 2 diabetes mellitus with other ophthalmic complication, without long-term current use of insulin ([facility] V24, [facility] V28) Stage 3 chronic kidney disease, unspecified whether stage 3a or 3b CKD (CMS/HCC V24, [facility] V28) COMPREHENSIVE METABOLIC PANEL Routine 05/29/2024 8:01 AM EDT Type 2 diabetes mellitus with other ophthalmic complication, without long-term current use of insulin ([facility]/HCC V24, CMS/HCC V28) Stage 3 chronic kidney disease, unspecified whether stage 3a or 3b CKD (CMS/HCC V24, CMS/HCC V28) HEMOGLOBIN A1C Routine 05/29/2024 8:01 AM EDT Type 2 diabetes mellitus with other ophthalmic complication, without long-term current use of insulin ([facility] V24, [facility] V28) Stage 3 chronic kidney disease, unspecified whether stage 3a or 3b CKD (CMS/HCC V24, CMS/HCC V28) NM EXERCISE STRESS TEST W/ MYOCARDIAL PERFUSION Routine 05/28/2024 1:15 PM EDT High coronary artery calcium score Coronary artery disease involving point hope ira coronary artery of point hope ira heart, unspecified whether angina present EXTERNAL CT REPORT 05/12/2024 DIABETES EYE EXAM Routine 11/28/2023 DEPRESSION SCREENING Routine 08/23/2023 FALLS RISK ASSESSMENT Routine 07/23/2023 DIABETES FOOT EXAM Routine 05/30/2023 COLONOSCOPY Routine 10/17/2016 HEPATITIS C SCREENING Routine 01/06/2013 from Last 3 Months or Most Recently Relevant to Health Maintenance Results * Lipid panel with reflex to direct LDL (05/29/2024 8:01 AM EDT) Cholesterol 90 0 - 200 mg/dL LAB CHEMISTRY METHOD 05/29/2024 12:22 PM EDT [facility] Triglycerides 47 0 - 150 mg/dL LAB CHEMISTRY METHOD 05/29/2024 12:22 PM EDT [facility] Comment:Results verified by repeat testing HDL 43 >=40 mg/dL LAB CHEMISTRY METHOD 05/29/2024 12:22 PM EDT [facility] LDL Calculated 38 0 - 100 mg/dL LAB CHEMISTRY METHOD 05/29/2024 12:22 PM EDT [facility] VLDL Cholesterol Shine 9.4 mg/dL LAB CHEMISTRY METHOD 05/29/2024 12:22 PM EDT [facility] Non HDL Chol. (LDL+VLDL) 47 <145 mg/dL LAB CHEMISTRY METHOD 05/29/2024 12:22 PM EDT [facility] Chol/HDL Ratio 2.1 0.0 - 4.4 LAB CHEMISTRY METHOD 05/29/2024 12:22 PM EDT [facility] Blood Venous blood specimen / Unknown Venipuncture / Unknown 05/29/2024 8:01 AM EDT 05/29/2024 8:01 AM EDT King FRANCISCO LAB BLOOD ORDERABLES Deb anthony Result [facility] [address] [place] [address], [place] [phone] * (ABNORMAL) Microalbumin creatinine urine ratio (05/29/2024 8:01 AM EDT) Creatinine, Urine 209.0 mg/dL LAB CHEMISTRY METHOD 05/29/2024 11:37 AM EDT [facility] Microalb, Ur 210.0(H) 0.0 - 29.0 mg/L LAB CHEMISTRY METHOD 05/29/2024 11:37 AM EDT [facility] Microalb/Crea t Ratio 100(H) <30 mg/g creat LAB CHEMISTRY METHOD 05/29/2024 11:37 AM EDT [facility] Urine Urine specimen obtained by clean catch procedure / Unknown Non-blood Collection / Unknown 05/29/2024 8:01 AM EDT 05/29/2024 8:01 AM EDT King FRANCISCO LAB URINE ORDERABLES Deb l Result [facility] [address] [place] [address], [place] [phone] * Hemoglobin A1c (05/29/2024 8:01 AM EDT) Hemoglobin A1C 6.2 <6.5 % LAB CHEMISTRY METHOD 05/29/2024 12:03 PM EDT [facility] Mean Bld Glu Estim. 131 mg/dL LAB CHEMISTRY METHOD 05/29/2024 12:03 PM EDT [facility] Blood Venous blood specimen / Unknown Venipuncture / Unknown 05/29/2024 8:01 AM EDT 05/29/2024 8:01 AM EDT King FRANCISCO LAB BLOOD ORDERABLES Deb l Result [facility] [address] [place] [address], * (ABNORMAL) Comprehensive metabolic panel (05/29/2024 8:01 AM EDT) Sodium 140 133 - 145 mmol/L LAB CHEMISTRY METHOD 05/29/2024 11:56 AM [facility] Potassium 5.4 3.5 - 5.5 mmol/L LAB CHEMISTRY METHOD 05/29/2024 11:56 AM [facility] Chloride 112(H) 96 - 110 mmol/L LAB CHEMISTRY METHOD 05/29/2024 11:56 AM [facility] CO2 22 21 - 32 mmol/L LAB CHEMISTRY METHOD 05/29/2024 11:56 AM [facility] Anion Gap 6 3 - 11 LAB CHEMISTRY METHOD 05/29/2024 11:56 AM [facility] Glucose 116(H) 70 - 100 mg/dL LAB CHEMISTRY METHOD 05/29/2024 11:56 AM [facility] BUN 33(H) 5 - 25 mg/dL LAB CHEMISTRY METHOD 05/29/2024 11:56 AM [facility] Creatinine 1.31(H) 0.70 - 1.30 mg/dL LAB CHEMISTRY METHOD 05/29/2024 11:56 AM [facility] eGFR 59(L) >=60 mL/min/1. 73m2 LAB CHEMISTRY METHOD 05/29/2024 11:56 AM [facility] Comment:Calculation based on the??Chronic Kidney Disease Epidemiology Collaboration (CKD-EPI) equation refit??without adjustment for race. BUN/Creatinine Ratio 25.2 LAB CHEMISTRY METHOD 05/29/2024 11:56 AM [facility] Calcium 8.8 8.5 - 10.5 mg/dL LAB CHEMISTRY METHOD 05/29/2024 11:56 AM [facility] AST (SGOT) 19 10 - 42 unit/L LAB CHEMISTRY METHOD 05/29/2024 11:56 AM EDT [facility] ALT (SGPT) 22 10 - 60 unit/L LAB CHEMISTRY METHOD 05/29/2024 11:56 AM EDT [facility] Alkaline Phosphatase 66 42 - 121 unit/L LAB CHEMISTRY METHOD 05/29/2024 11:56 AM EDT [facility] Total Protein 6.7 6.0 - 8.0 g/dL LAB CHEMISTRY METHOD 05/29/2024 11:56 AM EDT [facility] Albumin 3.8 3.2 - 5.0 g/dL LAB CHEMISTRY METHOD 05/29/2024 11:56 AM [facility] Total Bilirubin 0.4 0.0 - 1.4 mg/dL LAB CHEMISTRY METHOD 05/29/2024 11:56 AM EDT [facility] Blood Venous blood specimen / Unknown Venipuncture / Unknown 05/29/2024 8:01 AM EDT 05/29/2024 8:01 AM EDT us King [place]ANCIS[place] LAB BLOOD ORDERABLES Deb anthony Result [facility] [address] [place] [address], * NM EXERCISE STRESS TEST W/ MYOCARDIAL [...] Anatomical Region Laterality Modality Nuclear Medicine 05/28/2024 9:39 AM EDT 05/28/2024 10:11 AM EDT Impressions [...] Comments Resting ejection fraction was 64%. Result [facility] Katarina Hubbard MD CV STRESS PROCEDURES Final Resu lt * External CT Report (05/12/2024) Anatomical Region Laterality Modality Computed Tomogra phy Result [facility] Provider [place] Onbase IMG CT PROCEDURES Final Result * Diabetes Eye Exam (11/28/2023) [facility] Diabetes: Annual Retina Eye Exam abstracted Result [facility] HEALTH MAINTENANCE Final Result * Depression Screening (08/23/2023) [facility] Depression Screening abstracted Result [facility] HEALTH MAINTENANCE Final Result * Falls Risk Assessment (07/23/2023) [facility] Falls Risk Assessment abstracted Result [facility] Provider HEALTH MAINTENANCE Final Result * Diabetes Foot Exam (05/30/2023) [facility] Diabetes: Annual Foot Exam abstracted Result [facility] Provider HEALTH MAINTENANCE Final Result * Colonoscopy (10/17/2016) [facility] Colonoscopy no interpretation , abstracted Anatomical Region Laterality Modality Other Result [facility] Provider HEALTH MAINTENANCE Final Result * Hepatitis C Screening (01/06/2013) [facility] Hepatitis C Screening abstracted Result [facility] Provider HEALTH MAINTENANCE Final Result from Last 3 Months or Most Recently Relevant to Health Maintenance Insurance MEDICARE [facility] Care Teams Accountant Clerk Relationship Specialty Start Date End Date King Cr PA [address] [place] [address] PCP - General Internal Medicine 03/27/24
--- OUTSIDE RECORDS SUMMARY | 2024-07-29 14:00 | XMS_ITS | Encounter Summary ---
Author Organization [facility] [place] [address] Care Team Providers Care Real Estate Appraiser Supervisor Name Role Phone King Cr Primary Care Provider [phone] Reason for Visit * Reason Onset Date Comments rash on legs 06/26/2024 Encounter Details Date Type Department Care Team (Late st Contact Info) Description 06/26/2024 Telephone Adult Medicine [facility] [address] [place] [phone] King Cr PA [address], [place] [phone] rash on legs Social History Tobacco Use Types Packs/Day Years Used Date Smoking Tobacco: Former Cigarettes Smokeless Tobacco: Never Comments:Quit at the age of 17 smoked [...] for your loved ones. For example, child support investigator or elderly care for an older adult? [...] PM EST Sexual Orientation Not on file documented as of this encounter Progress Notes * Lorena David RN - 06/26/2024 4:13 PM EDT Pt. States one week ago he started with a rash. The rash is red and raised and feels rough to touchHe presently has it on left leg behind the knee and thigh area some on posterior thigh and 3 patches 1./2 dollar size behind knee. Itchy . The rt. Leg also has rash calf area. Itchy . He denies rash on any othr parts of body no face or chest, no difficulty breathing, no swallowing issue of problems, no cp , sob or weakness. He sts he has had this before and was given a steroid cream which works.Pt. Is a diabetic and stst his sugars have been good. I made apt. For tomorrow morning and advised pt. If any worsening symptoms to be evaluated tonight UC or ER and if he develops sob,cp or weaknessfever to be evaluated in the ER. Pt. agrees * Zora Ronny - 06/26/2024 3:52 PM EDT Patient call requires triage: Symptoms patient is presenting: rash started on left leg, behind knee and now on side of leg. Also starting on right leg. Patient would like to be seen tomorrow. How long has patient had these symptoms?: about a week For ALL patients calling to schedule any appointment (routine, sick visit, follow up, consult, etc.) in the outpatient setting please ask the following questions: Do you have fever of higher than 101, sore throat with difficulty swallowing or severe shortness ofbreath? no If YES to any of these above symptoms, send a message to triage and do not book. Red dot. If no, an audio or video visit should be booked. Have you had close contact with someone with Coronavirus in the last 14 days? no Have you traveled abroad? no Have you traveled recently to another state outside of [place], [place], [place], [place], [place], [place], [place]? no o If yes, did you quarantine for 14 days or have a negative covid test? no If yes to any of the above, patient is not to be scheduled in office until after 14 day quarantine or negative covid test. If pain or injury related was it due to an accident at work or from a motor vehicle accident? If yes, date of accident/Injury: If yes, gather 3rd republican insurance information Third [employer] Party Information: not applicable PCP: NOLAN Ramsay Payor: MEDICARE / Plan: MEDICARE PART A & B / Product Type: Medicare / documented in this encounter Plan of Treatment Upcoming Encounters Date Type Department Care Team (Late st Contact Info) Description 11/12/2024 11:00 AM EDT Office Visit Adult Medicine [facility] [address] [place] [phone] King Cr PA [address] [place] [address] documented as of this encounter Visit Diagnoses Not on filedocumented in this encounter Additional Health Concerns Assessment Noted Time PHQ-9 Depression Total Score: 0 05/27/19 12:35 PM EDT documented as of this encounter Care Teams Real Estate Appraiser Supervisor Relationship Specialty Start Date End Date King Cr PA [address] [place] [address] PCP - General Internal Medicine 03/27/24 documented as of this encounter
[2024-11-19 16:16] VITALS: BMI 28.3
--- NOTE | 2024-11-27 09:32 | HO.ANESPROP2 ---
Documented by User: Anita Banks NP 11/27/24 09:32 HPI - Anesthesia Eval Consult details Narrative: 69yo M for Right Cataract Extraction IOL Insertion Left eye 07/2024: Fent 49, Midaz 2 PMFSH Past Medical History Medical History Cataracts, bilateral HTN (hypertension) HLD (hyperlipidemia) Type 2 diabetes mellitus with renal complication CKD (chronic kidney disease) stage 3, GFR 30-59 ml/min CAD (coronary artery disease) Palpitations Family History Family history of problems with anesthesia: No Surgical History Surgical History Hx of colonoscopy Hx of left cataract extraction (07/28/24) History of Problems with Anesthesia: No Social History Social History Household Members: Spouse Housing: House Are you a primary lawn care specialist to a significant other at home: No Do you presently have visiting nurse or other home services: No Patient Tobacco Use Status: Former Tobacco user Tobacco use type: Cigarette Smoked in Last 30 Days: No Second Hand Smoke Exposure: No Use of substances other than those prescribed or required for medical reasons: No Have you been hit, kicked, punched, or otherwise hurt by someone within the past year? If so, by whom?: No Are you DNR?: No Advance Directives: No Advance Directives Information Provided: Yes Advance Directives on File: No Meds Allergies Allergy/AdvReac Type Severity Reaction Status Date / Time egg Allergy Intermediate Gastrointestinal Verified 12/01/24 06:58 Upset hydrochlorothiazide Allergy Intermediate Rash Verified 12/01/24 06:58 lactose Allergy Intermediate Gastrointestinal Verified 12/01/24 06:58 Upset Home Medications ?Medication ?Instructions ?Recorded ?Confirmed ?Last Taken ?Type aspirin 81 mg tablet,delayed 81 mg PO DAILY 07/24/24 11/19/24 Unknown History release carvedilol 3.125 mg tablet 3.125 mg PO BID 07/24/24 11/19/24 12/01/24 History lisinopril 2.5 mg tablet 2.5 mg PO DAILY 07/24/24 11/19/24 Unknown History metformin 500 mg tablet 500 mg PO BID 07/24/24 11/19/24 Unknown History rosuvastatin 20 mg tablet 20 mg PO DAILY 07/24/24 11/19/24 Unknown History timolol QAM 07/24/24 Unknown History Exam Height,Weight and Vital Signs: Height 5 ft 10 in Weight 89.358 kg Assessment and Plan Assessment Anesthesia Assessment: Chart Reviewed Final Anesthetic Review Family History of Problems with Anesthesia: No History of Problems with Anesthesia: No Documented by User: Amanda Valenzuela MD 12/01/24 07:42 [facility] Past Medical History Medical History Cataracts, bilateral HTN (hypertension) HLD (hyperlipidemia) Type 2 diabetes mellitus with renal complication CKD (chronic kidney disease) stage 3, GFR 30-59 ml/min CAD (coronary artery disease) Palpitations Surgical History Surgical History Hx of colonoscopy Hx of left cataract extraction (07/28/24) Social History Social History Household Members: Spouse Housing: House Are you a primary lawn care specialist to a significant other at home: No Do you presently have visiting nurse or other home services: No Patient Tobacco Use Status: Former Tobacco user Tobacco use type: Cigarette Smoked in Last 30 Days: No Second Hand Smoke Exposure: No Use of substances other than those prescribed or required for medical reasons: No Have you been hit, kicked, punched, or otherwise hurt by someone within the past year? If so, by whom?: No Are you DNR?: No Advance Directives: No Advance Directives Information Provided: Yes Advance Directives on File: No Meds Allergies Allergy/AdvReac Type Severity Reaction Status Date / Time egg Allergy Intermediate Gastrointestinal Verified 12/01/24 06:58 Upset hydrochlorothiazide Allergy Intermediate Rash Verified 12/01/24 06:58 lactose Allergy Intermediate Gastrointestinal Verified 12/01/24 06:58 Upset Home Medications ?Medication ?Instructions ?Recorded ?Confirmed ?Last Taken ?Type aspirin 81 mg tablet,delayed 81 mg PO DAILY 07/24/24 11/19/24 Unknown History release carvedilol 3.125 mg tablet 3.125 mg PO BID 07/24/24 11/19/24 12/01/24 History lisinopril 2.5 mg tablet 2.5 mg PO DAILY 07/24/24 11/19/24 Unknown History metformin 500 mg tablet 500 mg PO BID 07/24/24 11/19/24 Unknown History rosuvastatin 20 mg tablet 20 mg PO DAILY 07/24/24 11/19/24 Unknown History timolol QAM 07/24/24 Unknown History Exam Airway Mallampati Class: III TM Dist: >3cm Neck ROM: Full Partial: Upper Loose/Missing/Broken Teeth: Yes and Upper Heart: RRR Lungs: CTA Assessment and Plan Assessment Anesthesia Assessment: Anesthesia Plan Discussed Final Anesthetic Review NPO: Yes ASA Class: III Final Preanesthetic Review: Meds/Allgs Chart Reviewed, Consent Obtained/Reviewed and Anes Risks/Benef Reviewed Patient Risk: Intermediate Procedure Risk: Low Anesthetic Plan Anesthetic Plan: MAC: Disposition: Standard PACU
[2024-12-01] MEDS: Lactated Ringers 500 ML 50 ML IV (06:35)
[2024-12-01] MEDS: Tetracaine HCl/PF 0.5% Oph Sol 4 ML DROPS 1 DROP EYE-RIGHT (06:35)
[2024-12-01] MEDS: Phenylephrine HCL 2.5% Oph SoL 2 ML BOTTLE 1 DROP EYE-RIGHT ×3 (06:36→06:42)
[2024-12-01] MEDS: Tropicamide 1 % Ophth Sol 3 ML BTL 1 DROP EYE-RIGHT ×3 (06:36→06:42)
[2024-12-01] MEDS: Cyclopentolate 1 % Ophth Sol 2 ML DRPBTL 1 DROP EYE-RIGHT ×3 (06:36→06:42)
[2024-12-01] MEDS: Ketorolac Tromethamine 0.5% Op 5 ML DROPS 1 DROP EYE-RIGHT ×3 (06:36→06:42)
[2024-12-01 06:50] LABS: Glucose, Whole Blood 103 mg/dL (60-115)
[2024-12-01 06:51] VITALS: BP 132/69; PULSE 59; RESP 18; TEMP 36.7; O2SAT 99
[2024-12-01 06:58] VITALS: BMI 29.4
--- NOTE | 2024-12-01 08:26 | P.PCNO_ITS ---
Ophthalmology Procedure Procedure Date of Service: 12/01/24 Ophthalmology Viscoelastic: Healon Duet Dual Pack Pro Ophthalmology Lenses: IOL Acrysof MP - [id number] (19.5) Procedure Notes: PREOPERATIVE DIAGNOSIS: Decreased visual acuity right eye secondary to cataract POSTOPERATIVE DIAGNOSIS: Same PROCEDURE: Right cataract extraction with intraocular lens insertion SURGEON: Vu Tony M.D. ANESTHESIA: Topical/MAC ESTIMATED BLOOD LOSS: None COMPLICATIONS: None After obtaining informed consent, the patient was brought to the operating room suite and placed in the supine position. After adequate sedation per anesthesia, topical drops of Tetracaine were given to the right eye. The eye was then prepped and draped in the usual sterile fashion. The operating room microscope was then positioned over the operative eye and a lid speculum placed. A paracentesis was created. Viscoelastic was then instilled into the anterior chamber. A three plane incision was then created temporally, utilizing a 2.85 mm keratome. Capsulotomy forceps were then utilized to create a circular tear capsulotomy. Hydrodissection and hydrodelineation were carried out until adequate mobilization of the nucleus occurred. Phacoemulsification was then utilized to remove the dense central nu cleus followed by removal of the cortical material utilizing the automated aspiration irrigation unit. Viscoelastic was instilled into the posterior capsular bag followed by placement of a posterior chamber intraocular lens without difficulty. The residual Viscoelastic was then removed utilizing the automated IA machine. The wound was checked and found to be watertight. The patient tolerated the procedure well and the lid speculum was removed. Intracameral injection of Vigamox 0.1 mL followed by a subtenon injection of Kenalog-40 0.2 mL were administered. The patient will be seen in the a.m.
--- NOTE | 2024-12-01 08:26 | MHC.SHP ---
Pre-Procedural Eval Section A - 24 Hr Update-Section A only Date of Service: 12/01/24 The patient is an INPATIENT: No Changes since office visit: No Cold of Flu in the past 2 weeks, No New Medical Problems, No Changes in Medication and No Patient answered all questions The patient has been examined within 24 hours of the surgical procedure. The History & Physical has been completed within 30 days and I have reviewed it.: Yes Section B - Complete if H&P > 30 days Chief Complaint: glaucoma,Age-related nuclear cataract, right eye Allergies: Allergies Allergy/AdvReac Type Severity Reaction Status Date / Time egg Allergy Intermediate Gastrointestinal Verified 12/01/24 06:58 Upset hydrochlorothiazide Allergy Intermediate Rash Verified 12/01/24 06:58 lactose Allergy Intermediate Gastrointestinal Verified 12/01/24 06:58 Upset Plan Diagnosis/Plan: Unchanged I have reviewed the history and physical and performed a pertinent physical examination on my patient. No changes have occurred unless specified. Time Spent With Patient Time: Total time managing care of this patient today ____ minutes.
[2024-12-01 08:49] VITALS: BP 142/44; PULSE 67; RESP 18; TEMP 36.4; O2SAT 98
== END 2024-12-01 08:58 | disposition home or self-care (01) ==
PROVIDERS: PCP Physician Assistant Medical; Visit Provider Ophthalmology
PROC: (CPT 66985; principal; 2024-12-01 08:00)
DX: H25.11 Age-related nuclear cataract, right eye (principal); H40.1111 Primary open-angle glaucoma, right eye, mild stage; E11.40 Type 2 diabetes mellitus with diabetic neuropathy, unspecified; E11.22 Type 2 diabetes mellitus with diabetic chronic kidney disease; I12.9 Hypertensive chronic kidney disease with stage 1 through stage 4 chronic kidney disease, or unspecified chronic kidney disease; N18.30 Chronic kidney disease, stage 3 unspecified; E78.5 Hyperlipidemia, unspecified; E87.5 Hyperkalemia; Z79.84 Long term (current) use of oral hypoglycemic drugs; Z79.82 Long term (current) use of aspirin; Z79.899 Other long term (current) drug therapy; Z91.012 Allergy to eggs; Z88.8 Allergy status to other drugs, medicaments and biological substances; Z91.011 Allergy to milk products; Z98.890 Other specified postprocedural states; Z87.891 Personal history of nicotine dependence
CPT/HCPCS: 66984; 82947; J2250; J3010; J3301; V2630